=== PATIENT | male | born 1965 | race Caucasian/White ===

== ENCOUNTER 2018-06-11 17:34 | Emergency (ER) | payer OTHER ==
[~2018-06-11] VITALS: Ht 170.2 cm; Wt 74.8 kg
[2018-06-11] MEDS ORDERED: TRICOR145 MG (17:42)
== END 2018-06-11 21:59 | disposition home or self-care (01) ==
LOC: ER 17:34
DX: S90.31XA Contusion of right foot, initial encounter (principal); X50.3XXA Overexertion from repetitive movements, initial encounter; Y93.89 Activity, other specified; Y92.89 Other specified places as the place of occurrence of the external cause; Y99.8 Other external cause status